=== PATIENT | female | born 1955 | race Caucasian/White ===

== ENCOUNTER → 2018-04-26 14:02 | Outpatient (CLI) | payer BC, SELFPAY ==
[2018-05-16 13:03] LABS: HPV Reflexed? NOT INDICATED
== END ==
PROVIDERS: Visit Provider Obstetrics & Gynecology
DX: Z12.4 Encounter for screening for malignant neoplasm of cervix (principal)
CPT/HCPCS: 88175; G0145

== ENCOUNTER → 2019-08-27 12:26 | Outpatient (CLI) | payer MEDICARE, OTHER, SELFPAY ==
--- NOTE | 2019-08-27 12:35 | BI_ITS ---
MAMMOGRAPHY - BILATERAL SCREENING - CAD and FAITH IMAGES REASON FOR EXAM: Female, 64 years old. Routine annual screening examination. PERTINENT HISTORY: Non-contributory. TECHNIQUE: Digital examination. Mediolateral oblique (MLO) and craniocaudad (CC) views of both breasts were obtained. CAD: CAD was performed on this study. Faith images were reviewed. COMPARISON: Mammogram studies dated 07/05/2018 FINDINGS: Breast Composition: There are scattered areas of fibroglandular density. There are no suspicious masses, suspicious cluster of microcalcifications, architectural distortion or secondary sign of malignancy identified in either breast. Focal fibroglandular densities are noted bilaterally. A mole marker is placed over the mole on the right breast. A benign-appearing round macrocalcification is seen in the right breast. Benign round microcalcifications are seen in the superior outer aspect of the left breast. Faint vascular calcifications are seen in the left breast. No other significant abnormalities are identified. CAD and Faith were reviewed. BI/SCREEN MAMM (CAD) W/FAITH BILAT IMPRESSION: Stable bilateral screening mammogram. ASSESSMENT CATEGORY: BIRADS Category 2: Benign. A letter regarding these results will be sent to the patient by the facility within 30 days. FOLLOW UP RECOMMENDATION: Yearly follow up mammogram recommended. (A) Approximately 10% of breast cancers are not detected by mammography. A normal mammogram should not delay biopsy of a clinically suspicious abnormality. [id number] Electronically Signed: Caity Baltazar DO at 14:46 EST Tel , Service support ,
== END ==
PROVIDERS: PCP Internal Medicine; Referring Provider Internal Medicine; Visit Provider Internal Medicine
DX: Z12.31 Encounter for screening mammogram for malignant neoplasm of breast (principal)
CPT/HCPCS: 77063; 77067

== ENCOUNTER → 2020-12-29 12:30 | Outpatient (CLI) | payer MEDICARE, OTHER, SELFPAY ==
[2020-01-14 08:42] VITALS: BMI 30.5
--- NOTE | 2020-12-29 12:32 | BI_ITS ---
MAMMOGRAPHY - BILATERAL SCREENING REASON FOR EXAM: Female, 65 years old. Routine annual screening examination. PERTINENT HISTORY: Sister with breast cancer. TECHNIQUE: Digital bilateral breast faith (3D mammographic acquisition) in the CC and MLO projections. 2-D mediolateral oblique (MLO) and craniocaudad (CC) views of both breasts were obtained. CAD: Full Field Digital Mammography with Computer Added Detection was performed. COMPARISON: Comparison is made with prior study dated 08/27/2019. FINDINGS: Breast Composition: There are scattered areas of fibroglandular density. There are no dominant masses or suspicious calcifications. No other significant abnormalities are identified. There has been no significant change since the prior study. BI/SCRN MAMM (CAD)W/FAITH BILAT IMPRESSION: Stable bilateral screening mammogram. Yearly follow-up mammogram recommended. (A) ASSESSMENT CATEGORY: BIRADS Category 1: Negative. A letter regarding these results will be sent to the patient by the facility within 30 days. Approximately 10% of breast cancers are not detected by mammography. A normal mammogram should not delay biopsy of a clinically suspicious abnormality. [id number] Electronically Signed: Harman Johns MD at 14:00 EDT , Service support ,
== END ==
PROVIDERS: PCP Internal Medicine; Referring Provider Internal Medicine; Visit Provider Internal Medicine
DX: Z12.31 Encounter for screening mammogram for malignant neoplasm of breast (principal)
CPT/HCPCS: 77063; 77067

== ENCOUNTER → 2022-01-12 | Outpatient (CLI) | payer MEDICARE, OTHER, SELFPAY ==
--- NOTE | 2022-01-12 07:58 | BI_ITS ---
MAMMOGRAPHY - BILATERAL SCREENING REASON FOR EXAM: Female, 66 years old. Routine annual screening examination. PERTINENT HISTORY: Sister with breast cancer. TECHNIQUE: Digital bilateral breast faith (3D mammographic acquisition) in the CC and MLO projections. 2-D mediolateral oblique (MLO) and craniocaudad (CC) views of both breasts were obtained. CAD: Full Field Digital Mammography with Computer Added Detection was performed. COMPARISON: Comparison is made with prior study dated 12/29/2020 and 08/27/2019. FINDINGS: Breast Composition: There are scattered areas of fibroglandular density. There are no dominant masses or suspicious calcifications. No other significant abnormalities are identified. There has been no significant change since the prior study. BI/SCRN MAMM (CAD)W/FAITH BILAT IMPRESSION: Stable bilateral screening mammogram. Yearly follow-up mammogram recommended. (A) ASSESSMENT CATEGORY: BIRADS Category 1: Negative. A letter regarding these results will be sent to the patient by the facility within 30 days. Approximately 10% of breast cancers are not detected by mammography. A normal mammogram should not delay biopsy of a clinically suspicious abnormality. [id number] Electronically Signed: Harman Johns MD at 9:01 EDT ,
== END | disposition home or self-care (01) ==
LOC: OPBI 07:55
PROVIDERS: PCP Family Medicine; Visit Provider Internal Medicine
DX: Z12.31 Encounter for screening mammogram for malignant neoplasm of breast (principal)
CPT/HCPCS: 77063; 77067

== ENCOUNTER → 2023-01-20 | Outpatient (CLI) | payer MEDICARE, OTHER, SELFPAY ==
--- NOTE | 2023-01-20 11:56 | BI_ITS ---
MAMMOGRAPHY - BILATERAL SCREENING 3-D TOMOSYNTHESIS REASON FOR EXAM: Female, 67 years old. Routine screening PERTINENT HISTORY: Sister with breast cancer.. TECHNIQUE: 2-D mammograms and 3-D Tomosynthesis of the breast (s) were performed. CAD was performed. COMPARISON: 12/29/2020 FINDINGS: The breast composition is composed of scattered fibroglandular density. Scattered benign calcifications are seen. No dense spiculated masses or suspicious microcalcifications are identified. No architectural distortion is identified. There is no skin thickening or retraction. There has been no significant change since the prior study. BI/SCRN MAMM (CAD)W/FAIHT BILAT IMPRESSION: No mammographic signs of malignancy. Routine yearly mammograms recommended. ASSESSMENT CATEGORY: BIRADS Category 1: Negative. A letter regarding these results will be sent to the patient by the facility within 30 days. FOLLOW UP RECOMMENDATION: Yearly follow up mammogram recommended. (A) Approximately 10% of breast cancers are not detected by mammography. A normal mammogram should not delay biopsy of a clinically suspicious abnormality. Electronically Signed: Anjum Shahid MD at 12:52 EDT ,
== END | disposition home or self-care (01) ==
LOC: OPBI 11:53
PROVIDERS: PCP Family Medicine; Referring Provider Family Medicine; Visit Provider Family Medicine
DX: Z12.31 Encounter for screening mammogram for malignant neoplasm of breast (principal)
CPT/HCPCS: 77063; 77067

== ENCOUNTER → 2023-06-01 | Outpatient (CLI) | payer MEDICARE, OTHER, SELFPAY ==
[2023-06-01 12:12] LABS: Absolute Lymphocyte Count 1.14 X10^3/uL (0.83-4.51); Absolute Neutrophil Count 2.5 X10^3/uL (2.0-7.7); Basophil# 0.03 X10^3/uL; Basophil% 0.7 % (0-1); Eosinophil# 0.25 X10^3/uL; Eosinophils% 5.8 % (0-5); Hematocrit 38.8 % (37-47); Hemoglobin 13.2 g/dL (12.0-15.0); Lymphocyte # 1.14 X10^3/ul (0.83-4.51); Lymphocyte % 26.4 % (19-41); Mean Corpuscular Hgb 31.4 pg (27.0-32.0); Mean Corpuscular Volume 92.4 fL (81-99); Mean Platelet Vol. 9.9 fl (6.2-12.0); Monocyte# 0.35 X10^3/uL; Monocyte% 8.1 % (0-10); NRBC Flagged by Analyzer 0 % (0-5); Neutrophil # 2.54 X10^3/uL (2.7-7.7); Neutrophil % 58.8 % (47-70); Platelet Count 247 K/mm3 (150-450); RBC Distribution Width SD 43.7 fl (35.1-43.9); White Blood Count 4.3 K/mm3 (4.4-11.0)
[2023-06-01 12:37] LABS: ALB/GLOB Ratio 1.1 RATIO (0.9-2.4); AST(SGOT) 29 U/L (15-37); Alanine Aminotransfer ALT/SGPT 28 U/L (13-56); Albumin, Serum 3.7 g/dL (3.2-5.0); Alkaline Phosphatase 68 U/L (45-117); Anion Gap 4 (5-15); BUN 21 mg/dL (7-18); BUN/Creat Ratio 19.8 RATIO (10-20); Calcium,Total 9.4 mg/dL (8.5-10.1); Chloride 108 mmol/L (98-107); Cholesterol 165 mg/dL (200); Creatinine, Serum 1.06 mg/dL (0.55-1.02); EST Glomerular Filtration Rate 55 mL/min (>60); Est Glom Filt Rate - Afr Amer 66 mL/min (>60); Globulin 3.4 g/dL (2.2-4.2); Glucose 89 mg/dL (74-106); High Density Lipoprotein 87 mg/dL; Potassium 3.7 mmol/L (3.5-5.1); Protein, Total 7.1 g/dL (6.4-8.2); Sodium Level 141 mmol/L (136-145); Thyroid Stim Hormone (TSH) 1.01 uIU/mL (0.358-3.74); Triglycerides 57 mg/dL; Very Low Density Lipoprotein 11 mg/dL (5-40)
== END | disposition home or self-care (01) ==
LOC: MFPLAB 09:34
PROVIDERS: PCP Family Medicine; Visit Provider Family Medicine
DX: I10 Essential (primary) hypertension (principal)
CPT/HCPCS: 36415; 80053; 80061; 84443; 85025

== ENCOUNTER → 2024-01-22 | Outpatient (CLI) | payer MEDICARE, OTHER, SELFPAY ==
--- NOTE | 2024-01-22 07:53 | BI_ITS ---
MAMMOGRAPHY - BILATERAL SCREENING REASON FOR EXAM: Female, 68 years old. Routine annual screening examination. PERTINENT HISTORY: Sister with breast cancer. TECHNIQUE: Digital bilateral breast faith (3D mammographic acquisition) in the CC and MLO projections. 2-D mediolateral oblique (MLO) and craniocaudad (CC) views of both breasts were obtained. CAD: Full Field Digital Mammography with Computer Added Detection was performed. COMPARISON: Comparison is made with prior study dated January 20, 2023 and January 12, 2022. FINDINGS: Breast Composition: There are scattered areas of fibroglandular density. There are no dominant masses or suspicious calcifications. No other significant abnormalities are identified. There has been no significant change since the prior study. BI/SCRN MAMM (CAD)W/FAITH BILAT IMPRESSION: Stable bilateral screening mammogram. Yearly follow-up mammogram recommended. (A) ASSESSMENT CATEGORY: BIRADS Category 1: Negative. A letter regarding these results will be sent to the patient by the facility within 30 days. Approximately 10% of breast cancers are not detected by mammography. A normal mammogram should not delay biopsy of a clinically suspicious abnormality. [id number] Electronically Signed: Harman Johns MD at 8:50 EDT ,
== END | disposition home or self-care (01) ==
LOC: OPBI 07:52
PROVIDERS: PCP Family Medicine; Referring Provider Family Medicine; Visit Provider Family Medicine
DX: Z12.31 Encounter for screening mammogram for malignant neoplasm of breast (principal); Z80.3 Family history of malignant neoplasm of breast
CPT/HCPCS: 77063; 77067

== ENCOUNTER 2024-05-27 08:30 | Outpatient (CLI) | payer MEDICARE, OTHER, SELFPAY ==
[2024-05-27 10:31] LABS: Absolute Lymphocyte Count 1.45 X10^3/uL (0.83-4.51); Absolute Neutrophil Count 3.8 X10^3/uL (2.0-7.7); Basophil# 0.04 X10^3/uL; Basophil% 0.7 % (0-1); Eosinophil# 0.25 X10^3/uL; Eosinophils% 4.2 % (0-5); Hematocrit 39.7 % (37-47); Hemoglobin 13.1 g/dL (12.0-15.0); Lymphocyte # 1.45 X10^3/ul (0.83-4.51); Lymphocyte % 24.3 % (19-41); Mean Corpuscular Hgb 30.4 pg (27.0-32.0); Mean Corpuscular Volume 92.1 fL (81-99); Mean Platelet Vol. 9.5 fl (6.2-12.0); Monocyte% 6.7 % (0-10); NRBC Flagged by Analyzer 0 % (0-5); Neutrophil # 3.82 X10^3/uL (2.7-7.7); Neutrophil % 63.9 % (47-70); Platelet Count 315 K/mm3 (150-450); RBC Distribution Width CV 12.4 % (11.6-14.6); RBC Distribution Width SD 42.1 fl (35.1-43.9); Red Blood Count 4.31 M/mm3 (4.2-5.4)
[2024-05-27 10:51] LABS: Vitamin D,25 Hydroxy 41.8 ng/mL
[2024-05-27 11:55] LABS: ALB/GLOB Ratio 1.3 RATIO (0.9-2.4); AST(SGOT) 29 U/L (15-37); Alanine Aminotransfer ALT/SGPT 34 U/L (13-56); Alkaline Phosphatase 68 U/L (45-117); Anion Gap 7 (5-15); BUN 19 mg/dL (7-18); BUN/Creat Ratio 15.7 RATIO (10-20); Calcium,Total 9.6 mg/dL (8.5-10.1); Chloride 108 mmol/L (98-107); Cholesterol 174 mg/dL (200); Creatinine, Serum 1.21 mg/dL (0.55-1.02); EST Glomerular Filtration Rate 47 mL/min (>60); Est Glom Filt Rate - Afr Amer 57 mL/min (>60); Glucose 93 mg/dL (74-106); High Density Lipoprotein 85 mg/dL; Potassium 3.8 mmol/L (3.5-5.1); Sodium Level 140 mmol/L (136-145); Triglycerides 54 mg/dL; Very Low Density Lipoprotein 11 mg/dL (5-40)
== END 2024-05-27 23:59 | disposition home or self-care (01) ==
LOC: MFPLAB 08:31
PROVIDERS: PCP Family Medicine; Visit Provider Family Medicine
DX: M54.32 Sciatica, left side (principal); I10 Essential (primary) hypertension
CPT/HCPCS: 36415; 80053; 80061; 82306; 84443; 85025

== ENCOUNTER → 2025-01-28 | Outpatient (CLI) | payer MEDICARE, OTHER, SELFPAY ==
--- NOTE | 2025-01-28 07:17 | BI_ITS ---
EXAM: SCRN MAMM (CAD)W/FAITH BILAT DATE: 01/28/2025 CLINICAL HISTORY: F, Age 69 y/o , POST MENAPAUSAL SCREENING Sister with breast cancer. TECHNIQUE: SCRN MAMM (CAD)W/FAITH BILAT COMPARISON: Prior exam(s) dated January 22, 2024.. FINDINGS: TISSUE DENSITY: There are scattered areas of fibroglandular density. Bilateral Breast Mammographic Findings: No significant masses, calcifications or other abnormalities are identified. No suspicious masses, areas of developing architectural distortion, or suspicious calcifications. There has been no significant interval change. BI/SCRN MAMM (CAD)W/FAITH BILAT IMPRESSION: Stable examination. OVERALL FINAL ASSESSMENT BI-RADS 1: NEGATIVE. RECOMMENDATION: Routine annual follow-up in 1 Year A letter with findings and recommendations will be mailed to the patient. Reading Location: [id number]
--- NOTE | 2025-01-28 07:22 | BD_ITS ---
PROCEDURE: DEXA BONE DENSITY STUDY 01/28/2025 REASON FOR EXAM: F, age 69 y/o . Postmenopausal. TECHNIQUE: DEXA BONE DENSITY STUDY COMPARISON: None FINDINGS: BMD and T-SCORES Lumbar spine: 0.693 g/cm2, T-score -3.0 Levels: L1 through L4 Left femoral neck: 0.523 g/cm2, T-score -2.9 Femoral neck comparison data not recommended for monitoring change. Left total hip: 0.708 g/cm2, T-score -1.9 Right femoral neck: 0.513 g/cm2, T-score -3.0 Femoral neck comparison data not recommended for monitoring change. Right total hip: 0.719 g/cm2, T-score -1.8 The World Health Organization has defined the following categories based on bone density: Normal bone density: T-score equal to or greater than -1.0 Osteopenia: T-score between -1.0 and -2.5 Osteoporosis: T-score equal to or less than -2.5 The patient does meet the pharmacological treatment recommendations for prevention of osteoporosis. BD/Dexa Bone Density Study IMPRESSION: OSTEOPOROSIS. Recommend follow-up as clinically warranted. Reading Location: [facility]
--- OUTSIDE RECORDS SUMMARY | 2025-01-28 07:32 | XMS RPT_ITS | CCD ---
Author Organization [facility] Inform ion Partnership [employer] [facility] Care Team Providers Care Mine Motor Operator Name Role Phone LAKHWINDER ARREOLAVIN Unavailable Unavailable ANIBAL GRACE Unavailable Unavailable Anibal Grace Unavailable Unavailable Anibal Grace Unavailable Unavailable Shanice Ambrose Admitting Unavailable Shanice Ambrose Attending Unavailable Anibal Grace Primary Care Unavailable Oberhauser, Mel L Admitting Unavailable Oberhauser, Mel L Attending Unavailable Oberhauser, Mel L Primary Care Unavailable Oberhauser, Mel Unavailable Unavailable Oberhauser, Mel L Unavailable Unavailable Anibal Grace Unavailable Unavailable Unavailable Unavailable Unavailable Oberhauser, Mel Unavailable Unavailable Oberhauser, Mel L Unavailable Unavailable Oberhauser, Mel L Unavailable Unavailable Unavailable Unavailable Unavailable Oberhauser, Mel L Unavailable [phone] Ba Yousif Unavailable Unavailable Marlen, Eric Attending Unavailable Marlen, Davidon Primary Care Unavailable MarlenEric Attending Unavailable Marlen, Chalon Referring Unavailable Marlen, Chalon Primary Care Unavailable Allergies Allergy Classification Reported Allergen(s) Allergy Type Date of Onset Reaction(s) Facility Opioid Agonists (3 sources) Codeine; Translations: [codeine] Drug Allergy [facility] Work Phone: (10 sources) codeine; Translations: [CODEINE] Drug Allergy 5 Unknown [facility] Repository (2 sources) lisinopril; Translations: [LISINOPRIL] Drug Allergy 6 Other (See Comments) [facility] Repository Medications Current Medications Medication Drug Class(es) Dates Sig (Normalized) Sig (Original) aspirin 81 mg delayed release oral tablet (14 sources) Nonsteroidal Anti-inflammatory Drug Start: 01-14-2020 take 1 tablet by mouth once daily Aspirin (Adult Aspirin Regimen) 81 mg tablet,delayed release (DR/EC) Active 81 MG PO DAILY January 13, 2020 11:00pm azithromycin 250 mg oral tablet (2 sources) Macrolide Antimicrobial Start: 01-14-2020 Azithromycin Active 0 PO .COMPLEX 6 January 13, 2020 11:00pm take 500 mg today (day 1), then 250 mg for 4 days (days 2-5) PO doxycycline hyclate 100 mg oral tablet (1 source) Tetracycline-class Drug Start: 11-15-2021 End: 11-24-2021 take 1 tablet by mouth twice daily doxycycline hyclate 100 mg oral tablet ; 1 tab(s) orally 2 times a day Quantity: 20 Refills: 0 Ordered: 15-Nov-2021 Ba Yousif Start: 15-Nov-2021 End: 24-Nov-2021 Generic Substitution Allowed Comments: Avoid prolonged or excessive exposure to direct and/or artificial sunlight while taking this medication.Do not take this drug if you are .Finish all this medication unless otherwise directed by prescriber.Medicat ion should be taken with plenty of water. Comment on above: Avoid prolonged or e xcessive exposure to direct and/or artificial sunlight while taking this medication.Do not take this drug if you are .Finish all this medication unless otherwise directed by prescriber.Medication should be taken with plenty of water. fexofenadine hydrochloride 60 mg oral tablet (13 sources) Histamine-1 Receptor Antagonist Start: 01-14-2020 take 1 tablet by mouth twice daily Fexofenadine (Carol Allergy) 60 mg tablet Active 60 MG PO TWICE A DAY January 13, 2020 11:00pm Carol TABS PATY E 1 TABLET DAILY. Quantity: 0 Refills: 0 Ordered: 17-Sep-2019 DO Active Carol TABS PATY E 1 TABLET DAILY. Refills: 0 DO Active Carol TABS PATY E 1 TABLET DAILY. Refills: 0 Active hydroCHLOROthiazide 12.5 mg oral capsule (19 sources) Thiazide Diuretic Start: 06-21-2019 Hydrochlorothiazide Active PO January 13, 2020 11:00pm Start: 01-10-2018 End: 01-10-2018 take 1 tablet by mouth once daily hydroCHLOROthiazide (HYDRODIURIL) 12.5 MG tablet Take 1 (one) tablet (12.5 mg total) by mouth daily. 90 tablet 3 01/10/2018 Active losartan potassium 100 mg oral tablet (19 sources) Angiotensin 2 Receptor Jeffry Start: 06-21-2019 Losartan Active PO January 13, 2020 11:00pm Start: 01-10-2018 End: 01-10-2018 take 1 tablet by mouth once daily losartan (COZAAR) 100 MG tablet Take 1 (one) tablet (100 mg total) by mouth daily. 90 tablet 3 01/10/2018 Active lovastatin 20 mg oral tablet (17 sources) HMG-CoA Reductase Inhibitor Start: 01-14-2020 Lovastatin Active MG PO January 13, 2020 11:00pm Start: 07-26-2017 take 1 tablet by jose th once daily Lovastatin 20 MG Oral Tablet Take 1 tablet daily as directed Quantity: 90 Refills: 3 Ordered: 06-Dec-2021 Mel Montalvo DO Start : 22-Jul-2019 Active Completed/Discontinued Medications Medication Drug Class(es) Dates Sig (Normalized) Sig (Original) lisinopril 20 mg oral tablet (9 sources) Angiotensin Converting Enzyme Inhibitor End: 11-30-2021 take 1 tablet by mouth once daily Lisinopril 20 MG Oral Tablet TAKE 1 TABLET DAILY DIRECTED. Quantity: 0 Refills: 0 Ordered: 30-Nov-2021 DO End : 30-Nov-2021 Complete mupirocin 0.02 mg/mg topical ointment (3 sources) RNA Synthetase Inhibitor Antibacterial Start: 11-20-2021 Mupirocin 2 % External Ointment APPLY SPARINGLY TO AFFECTED AREA(S) TWICE DAILY Quantity: 1 Refills: 0 Ordered: 20-Nov-2021 Vinay Wiggins PA-C Start : 20-Nov-2021 Active naproxen sodium 220 mg oral tablet (11 sources) Nonsteroidal Anti-inflammatory Drug take 1 tablet by mouth three times daily as needed Aleve 220 MG Oral Tablet TAKE 1 TABLET 3 TIMES DAILY NEEDED. Quantity: 0 Refills: 0 Ordered: 17-Sep-2019 DO Active omeprazole 40 mg delayed release oral capsule (1 source) Proton Pump Inhibitor End: 01-10-2018 take 1 capsule by mouth once daily omeprazole (PRILOSEC) 40 MG capsule Take 40 mg by mouth daily. 01/10/2018 Discontinued 24 hr oxybutynin chloride 5 mg extended release oral tablet (5 sources) Cholinergic Muscarinic Antagonist Start: 01-28-2020 take 1 tablet by mouth once daily Oxybutynin Chloride ER 5 MG Oral Tablet Extended Release 24 Hour Take one tablet daily Quantity: 90 Refills: 1 Ordered: 28-Jan-2020 Mel Montalvo DO Start : 28-Jan-2020 Active progesterone 100 mg oral capsule (8 sources) Progesterone take 1 capsule by mouth once daily Progesterone 100 MG Oral Capsule TAKE 1 CAPSULE ONCE DAILY Quantity: 0 Refills: 0 Ordered: 17-Sep-2019 DO Active tolterodine tartrate 2 mg oral tablet (15 sources) Cholinergic Muscarinic Antagonist Start: 10-07-2021 End: 10-26-2021 take 1 tablet by mouth twice daily Tolterodine Tartrate 2 MG Oral Tablet Take 1 tablet twice daily Quantity: 60 Refills: 5 Ordered: 07-Oct-2021 Mel Montalvo DO Start : 07-Oct-2021 End : 26-Oct-2021 Complete Start: 01-27-2020 take 1 tablet by jose th once daily Tolterodine Tartrate ER 4 MG Oral Capsule Extended Release 24 Hour TAKE 1 TABLET BY MOUTH DAILY Quantity: 90 Refills: 3 Ordered: 26-Oct-2021 Mel Montalvo DO Start : 27-Jan-2020 Active Start: 01-14-2020 take 1 tablet by jose th once daily Tolterodine (Detrol) 1 mg tablet Active 1 MG PO DAILY January 13, 2020 11:00pm Problems Active Problems Problem Classification Problem Date Documented Date Episodic/Chronic Acute bronchitis (2 sources) Acute bronchitis; Translations: [Acute bronchitis, unspecified] 01-14-2020 Episodic Cardiac and circulatory congenital anomalies (4 sources) Atrial septal defect; Translations: [Patent foramen ovale] Onset: 02-18-2015 02-18-2015 Chronic Disorders of lipid metabolism (17 sources) Hyperlipidemia, unspecified; Translations: [Dyslipidemia] Onset: 02-18-2015 02-18-2015 Chronic Essential hypertension (18 sources) Essential (primary) hypertension; Translations: [Hypertensive disorder] Onset: 02-18-2015 02-18-2015 Chronic Other diseases of bladder and urethra (10 sources) Overactive bladder; Translations: [Overactive bladder] Chronic Other screening for suspected conditions (not mental disorders or infectious disease) (20 sources) Patient encounter status; Translations: [Special screening for osteoporosis] Onset: 01-24-2025 Episodic Poisoning by nonmedicinal substances (3 sources) Spider bite wound; Translations: [Toxic effect of venom] Episodic Residual codes; unclassified (11 sources) Postmenopausal state; Translations: [Asymptomatic postmenopausal status (age-related) (natural)] Episodic Residual codes; unclassified (20 sources) Past history of procedure; Translations: [Other specified personal history presenting hazards to health] Episodic Comment on above: 07/2018; 04/2018; Residual codes; unclassified (1 source) Asymptomatic menopausal state; Translations: [Asymptomatic menopausal state] Onset: 01-24-2025 Episodic Unclassified (2 sources) LESION ON BACK 11-15-2021 Comment on above: LESION ON BACK Past or Other Problems Problem Classification Problem Date Documented Da te Episodic/Chronic Spondylosis; intervertebral disc disorders; other back problems (1 source) Sciatica, left side; Translations: [Sciatica, left side] Onset: 07-26-2024 Episodic Unclassified (6 sources) Patient encounter status; Translations: [Encounter for screening mammogram for breast cancer] NEGATED: Highlighted row has not occurred!Residual codes; unclassified (4 sources) Disease Episodic Results Test Name Value Interpretation Reference Range Facility CBC W/Diff, Automatedon 05-04 Absolute Lymph 1.45 X10 3/uL Normal 0.83-4.51 [facility] Comment on above: Order Comment: Order Date: 05/27/24 Order Info: [id number] - CBCD Performed By: #### L 500.4050, L500.4100, L501.9520, L506.1000, L100.0100 #### [facility] [address] [place], [place], [id number] Absolute Neut 3.8 X10 3/uL Normal 2.0-7.7 [facility] Comment on above: Order Comment: Order Date: 05/27/24 Order Info: [id number] - CBCD Performed By: #### L 500.4050, L500.4100, L501.9520, L506.1000, L100.0100 #### [facility] [address] [place], [address] Basophils/100 WBC (Bld) 0.7 % Normal 0-1 [facility] Comment on above: Order Comment: Order Date: 05/27/24 Order Info: 0184-1 - CBCD Performed By: #### L 500.4050, L500.4100, L501.9520, L506.1000, L100.0100 #### [facility] [address] [place], [address] Eosinophils/100 WBC (Bld) 4.2 % Normal 0-5 [facility] Comment on above: Order Comment: Order Date: 05/27/24 Order Info: 0184-1 - CBCD Performed By: #### L 500.4050, L500.4100, L501.9520, L506.1000, L100.0100 #### [facility] [address] [place], [address] Erythrocyte distribution width (RBC) [Ratio] 12.4 % Normal 11.6-14.6 [facility] Comment on above: Order Comment: Order Date: 05/27/24 Order Info: 0184-1 - CBCD Performed By: #### L 500.4050, L500.4100, L501.9520, L506.1000, L100.0100 #### [facility] [address] [place], [address] Hematocrit (Bld) [Volume fraction] 39.7 % Normal 37-47 [facility] Comment on above: Order Comment: Order Date: 05/27/24 Order Info: 0184-1 - CBCD Performed By: #### L 500.4050, L500.4100, L501.9520, L506.1000, L100.0100 #### [facility] [address] [place], [address] Hemoglobin (Bld) [Mass/Vol] 13.1 g/dL Normal 12.0-15.0 [facility] Comment on above: Order Comment: Order Date: 05/27/24 Order Info: 0184-1 - CBCD Performed By: #### L 500.4050, L500.4100, L501.9520, L506.1000, L100.0100 #### [facility] [address] [place], [address] IG% 0.200 Normal 0.0-0.9 [facility] Comment on above: Order Comment: Order Date: 05/27/24 Order Info: 0184- - CBCD Result Comment: IG% - Immature Granulocytes (promyelocytes, myelocytes and metamyelocytes) > 1% indicates that a LEFT SHIFT is Present. Performed By: #### L 500.4050, L500.4100, L501.9520, L506.1000, L100.0100 #### [facility] [address] [place], [address] Lymphocytes/100 WBC (Bld) 24.3 % Normal 19-41 [facility] Comment on above: Order Comment: Order Date: 05/27/24 Order Info: 0184- - CBCD Performed By: #### L 500.4050, L500.4100, L501.9520, L506.1000, L100.0100 #### [facility] [address] [place], [address] MCH (RBC) [Entitic mass] 30.4 pg Normal 27.0-32.0 [facility] Comment on above: Order Comment: Order Date: 05/27/24 Order Info: 0184-1 - CBCD Performed By: #### L 500.4050, L500.4100, L501.9520, L506.1000, L100.0100 #### [facility] [address] [place], [address] MCHC (RBC) [Mass/Vol] 33.0 g/dL Normal 32-36 [facility] Comment on above: Order Comment: Order Date: 05/27/24 Order Info: 0184-1 - CBCD Performed By: #### L 500.4050, L500.4100, L501.9520, L506.1000, L100.0100 #### [facility] [address] [place], [address] MCV (RBC) [Entitic vol] 92.1 fL Normal 81-99 [facility] Comment on above: Order Comment: Order Date: 05/27/24 Order Info: 0184-1 - CBCD Performed By: #### L 500.4050, L500.4100, L501.9520, L506.1000, L100.0100 #### [facility] [address] [place], [address] Monocytes/100 WBC (Bld) 6.7 % Normal 0-10 [facility] Comment on above: Order Comment: Order Date: 05/27/24 Order Info: 018- - CBCD Performed By: #### L 500.4050, L500.4100, L501.9520, L506.1000, L100.0100 #### [facility] [address] [place], [address] Neutrophils/100 WBC (Bld) 63.9 % Normal 47-70 [facility] Comment on above: Order Comment: Order Date: 05/27/24 Order Info: 018- - CBCD Performed By: #### L 500.4050, L500.4100, L501.9520, L506.1000, L100.0100 #### [facility] [address] [place], [address] Nucleated RBC (Bld) [#/Vol] 0 10*3/uL Normal 0-5 [facility] Comment on above: Order Comment: Order Date: 05/27/24 Order Info: 0184-1 - CBCD Performed By: #### L 500.4050, L500.4100, L501.9520, L506.1000, L100.0100 #### [facility] [address] [place], [address] Platelet mean volume (Bld) [Entitic vol] 9.5 fL Normal 6.2-12.0 [facility] Comment on above: Order Comment: Order Date: 05/27/24 Order Info: 0184-1 - CBCD Performed By: #### L 500.4050, L500.4100, L501.9520, L506.1000, L100.0100 #### [facility] [address] [place], [address] Platelets (Bld) [#/Vol] 315 10*3/uL Normal 150-450 [facility] Comment on above: Order Comment: Order Date: 05/27/24 Order Info: 0184- - CBCD Performed By: #### L 500.4050, L500.4100, L501.9520, L506.1000, L100.0100 #### [facility] [address] [place], [address] RBC (Bld) [#/Vol] 4.31 10*6/uL Normal 4.2-5.4 [facility] Comment on above: Order Comment: Order Date: 05/27/24 Order Info: 0184- - CBCD Performed By: #### L 500.4050, L500.4100, L501.9520, L506.1000, L100.0100 #### [facility] [address] [place], [address] RDW SD 42.1 fl Normal 35.1-43.9 [facility] Comment on above: Order Comment: Order Date: 05/27/24 Order Info: 0184-1 - CBCD Performed By: #### L 500.4050, L500.4100, L501.9520, L506.1000, L100.0100 #### [facility] [address] [place], [address] WBC (Bld) [#/Vol] 6.0 10*3/uL Normal 4.4-11.0 [facility] Comment on above: Order Comment: Order Date: 05/27/24 Order Info: 0184-1 - CBCD Performed By: #### L 500.4050, L500.4100, L501.9520, L506.1000, L100.0100 #### [facility] [address] [place], [address] Comprehensive Metabolic Prof ilon 05-27-2024 Albumin [Mass/Vol] 4.0 g/dL Normal 3.2-5.0 [facility] Comment on above: Order Comment: Order Date: 05/27/24 Order Info: [id number] - CMP Order Info: [id number] - LIPID Order Info: [id number] - TSH Performed By: #### L 500.4050, L500.4100, L501.9520, L506.1000, L100.0100 #### [facility] [address] [place], [address] Albumin/Globulin [Mass ratio] 1.3 {ratio} Normal 0.9-2.4 [facility] Comment on above: Order Comment: Order Date: 05/27/24 Order Info: [id number] - CMP Order Info: [id number] - LIPID Order Info: [id number] - TSH Performed By: #### L 500.4050, L500.4100, L501.9520, L506.1000, L100.0100 #### [facility] [address] [place], [address] ALK P 68 U/L Normal 45-117 [facility] Comment on above: Order Comment: Order Date: 05/27/24 Order Info: [id number] - CMP Order Info: [id number] - LIPID Order Info: 301-3 - TSH Performed By: #### L 500.4050, L500.4100, L501.9520, L506.1000, L100.0100 #### [facility] [address] [place], [address] ALT [Catalytic activity/Vol] 34 U/L Normal 13-56 [facility] Comment on above: Order Comment: Order Date: 05/27/24 Order Info: 785- - CMP Order Info: [id number] - LIPID Order Info: [id number] - TSH Performed By: #### L 500.4050, L500.4100, L501.9520, L506.1000, L100.0100 #### [facility] [address] [place], [address] AST [Catalytic activity/Vol] 29 U/L Normal 15-37 [facility] Comment on above: Order Comment: Order Date: 05/27/24 Order Info: [id number] - CMP Order Info: - LIPID Order Info: [id number] - TSH Performed By: #### L 500.4050, L500.4100, L501.9520, L506.1000, L100.0100 #### [facility] [address] [place], [address] Bilirubin [Mass/Vol] 0.80 mg/dL Normal 0.20-1.00 [facility] Comment on above: Order Comment: Order Date: 05/27/24 Order Info: [id number] - CMP Order Info: - LIPID Order Info: [id number] - TSH Result Comment: For patients on eltrombopag therapy, use of Dimension Mcallister TBIL is not recommended. Performed By: #### L 500.4050, L500.4100, L501.9520, L506.1000, L100.0100 #### [facility] [address] [place], [address] BUN/CRE 15.7 RATIO Normal 10-20 [facility] Comment on above: Order Comment: Order Date: 05/27/24 Order Info: 1 - CMP Order Info: [id number] - LIPID Order Info: [id number] - TSH Performed By: #### L 500.4050, L500.4100, L501.9520, L506.1000, L100.0100 #### [facility] [address] [place], [address] CA,Total 9.6 mg/dL Normal 8.5-10.1 [facility] Comment on above: Order Comment: Order Date: 05/27/24 Order Info: 785- - CMP Order Info: - LIPID Order Info: 3 - TSH Performed By: #### L 500.4050, L500.4100, L501.9520, L506.1000, L100.0100 #### [facility] [address] [place], [address] Chloride [Moles/Vol] 108 mmol/L High 98-107 [facility] Comment on above: Order Comment: Order Date: 05/27/24 Order Info: [id number] - CMP Order Info: - LIPID Order Info: [id number] - TSH Performed By: #### L 500.4050, L500.4100, L501.9520, L506.1000, L100.0100 #### [facility] [address] [place], [address] CO2 [Moles/Vol] 26.0 mmol/L Normal 21.0-32.0 [facility] Comment on above: Order Comment: Order Date: 05/27/24 Order Info: [id number] - CMP Order Info: [id number] - LIPID Order Info: [id number] - TSH Performed By: #### L 500.4050, L500.4100, L501.9520, L506.1000, L100.0100 #### [facility] [address] [place], [address] Creatinine [Mass/Vol] 1.21 mg/dL High 0.55-1.02 [facility] Comment on above: Order Comment: Order Date: 05/27/24 Order Info: 785- - CMP Order Info: [id number] - LIPID Order Info: [id number] - TSH Result Comment: The validity of the calculated GFR GFRAA in patients over 70 years has not been determined. Clinical correlation is essential. Performed By: #### L 500.4050, L500.4100, L501.9520, L506.1000, L100.0100 #### [facility] [address] [place], [address] EST GFR - AA 57 mL/min Low >60 [facility] Comment on above: Order Comment: Order Date: 05/27/24 Order Info: 07-1 - CMP Order Info: [id number] - LIPID Order Info: 3 - TSH Result Comment: Afri can [place] GFR Calc Performed By: #### L 500.4050, L500.4100, L501.9520, L506.1000, L100.0100 #### [facility] [address] [place], [address] GAP 7 Normal 5-15 [facility] Comment on above: Order Comment: Order Date: 05/27/24 Order Info: 0786 - CMP Order Info: [id number] - LIPID Order Info: [id number] - TSH Performed By: #### L 500.4050, L500.4100, L501.9520, L506.1000, L100.0100 #### [facility] [address] [place], [address] GFR/1.73 sq M.predicted among non-blacks MDRD (S/P/Bld) [Vol rate/Area] 47 mL/min/{1.73_m2} Low >60 [facility] Comment on above: Order Comment: Order Date: 05/27/24 Order Info: [id number] - CMP Order Info: [id number] - LIPID Order Info: 6 - TSH Result Comment: Non- GFR Calc Performed By: #### L 500.4050, L500.4100, L501.9520, L506.1000, L100.0100 #### [facility] [address] [place], [address] Globulin (S) [Mass/Vol] 3.0 g/dL Normal 2.2-4.2 [facility] Comment on above: Order Comment: Order Date: 05/27/24 Order Info: 07 - CMP Order Info: - LIPID Order Info: [id number] - TSH Performed By: #### L 500.4050, L500.4100, L501.9520, L506.1000, L100.0100 #### [facility] [address] [place], [address] Glucose [Mass/Vol] 93 mg/dL Normal 74-106 [facility] Comment on above: Order Comment: Order Date: 05/27/24 Order Info: [id number] - CMP Order Info: - LIPID Order Info: [id number] - TSH Performed By: #### L 500.4050, L500.4100, L501.9520, L506.1000, L100.0100 #### [facility] [address] [place], [address] Potassium [Moles/Vol] 3.8 mmol/L Normal 3.5-5.1 [facility] Comment on above: Order Comment: Order Date: 05/27/24 Order Info: 07 - CMP Order Info: - LIPID Order Info: [id number] - TSH Performed By: #### L 500.4050, L500.4100, L501.9520, L506.1000, L100.0100 #### [facility] [address] [place], [address] Sodium [Moles/Vol] 140 mmol/L Normal 136-145 [facility] Comment on above: Order Comment: Order Date: 05/27/24 Order Info: 07 - CMP Order Info: - LIPID Order Info: [id number] - TSH Performed By: #### L 500.4050, L500.4100, L501.9520, L506.1000, L100.0100 #### [facility] [address] [place], [address] T PROT 7.0 g/dL Normal 6.4-8.2 [facility] Comment on above: Order Comment: Order Date: 05/27/24 Order Info: [id number] - CMP Order Info: - LIPID Order Info: [id number] - TSH Performed By: #### L 500.4050, L500.4100, L501.9520, L506.1000, L100.0100 #### [facility] [address] [place], [address] Urea nitrogen [Mass/Vol] 19 mg/dL High 7-18 [facility] Comment on above: Order Comment: Order Date: 05/27/24 Order Info: [id number] - CMP Order Info: - LIPID Order Info: [id number] - TSH Performed By: #### L 500.4050, L500.4100, L501.9520, L506.1000, L100.0100 #### [facility] [address] [place], [address] Lipid Profileon 05-27-2024 Cholesterol [Mass/Vol] 174 mg/dL Normal 200 [facility] Comment on above: Order Comment: Order Date: 05/27/24 Order Info: [id number] - CMP Order Info: - LIPID Order Info: [id number] - TSH Result Comment: <200 mg/dL Desirable 200-240 mg/dL Borderline >240 mg/dL High Risk Performed By: #### L 500.4050, L500.4100, L501.9520, L506.1000, L100.0100 #### [facility] [address] [place], [address] Cholesterol in HDL [Mass/Vol] 85 mg/dL Normal [facility] Comment on above: Order Comment: Order Date: 05/27/24 Order Info: [id number] - CMP Order Info: - LIPID Order Info: [id number] - TSH Result Comment: The drugs N-Acetylcysteine and Metamizole may falsely depress this assay. Reference Range HDL <40 mg/dL Low HDL Cholesterol HDL >or= 60 mg/dL High HDL Cholesterol Performed By: #### L 500.4050, L500.4100, L501.9520, L506.1000, L100.0100 #### [facility] [address] [place], [address] Cholesterol in LDL [Mass/Vol] 78 mg/dL Normal 0-130 [facility] Comment on above: Order Comment: Order Date: 05/27/24 Order Info: 0786- - CMP Order Info: [id number] - LIPID Order Info: [id number] - TSH Performed By: #### L 500.4050, L500.4100, L501.9520, L506.1000, L100.0100 #### [facility] [address] [place], [address] Cholesterol in VLDL [Mass/Vol] 11 mg/dL Normal 5-40 [facility] Comment on above: Order Comment: Order Date: 05/27/24 Order Info: 0786- - CMP Order Info: [id number] - LIPID Order Info: [id number] - TSH Performed By: #### L 500.4050, L500.4100, L501.9520, L506.1000, L100.0100 #### [facility] [address] [place], [address] Triglyceride [Mass/Vol] 54 mg/dL Normal [facility] Comment on above: Order Comment: Order Date: 05/27/24 Order Info: [id number] - CMP Order Info: [id number] - LIPID Order Info: [id number] - TSH Result Comment: The drugs N-Acetylcysteine and Metamizole may falsely depress this assay. Serum Triglycerides Reference Interval Normal <150 mg/dL Borderline high 150 - 199 mg/dL High 200 - 499 mg/dL Very High > or = 500 mg/dL Performed By: #### L 500.4050, L500.4100, L501.9520, L506.1000, L100.0100 #### [facility] [address] [place], [place], [id number] Thyroid Stim Hormone (TSH)on 05-27-2024 TSH 1.030 uIU/mL Normal 0.358-3.740 [facility] Comment on above: Order Comment: Order Date: 05/27/24 Order Info: [id number] - CMP Order Info: [id number] - LIPID Order Info: [id number] - TSH Performed By: #### L 500.4050, L500.4100, L501.9520, L506.1000, L100.0100 #### [facility] [address] [place], [place], [id number] Vitamin D,25 Hydroxyon 05-27 Vitamin D 25-OH 41.8 ng/mL Normal [facility] Comment on above: Order Comment: Order Date: 05/27/24 Order Info: [id number] - VITD25 Result Comment: Glory min D 25(OH) Status Range Deficiency <20 ng/mL (50nmol/L) Insufficiency 20 - 30 ng/mL (50 - 75 nmol/L) Sufficiency 30 - 100 ng/mL (75 - 250 nmol/L) Toxicity >100 ng/mL (>250 nmol/L) Performed By: #### L 500.4050, L500.4100, L501.9520, L506.1000, L100.0100 #### [facility] [address] [place], [place], [id number] Absolute lymphocyte countOrd ered By: Eric Gee on 06-01-2023 Lymphocytes Auto (Unsp spec) [#/Vol] 1.14 10*3/uL 0.83-4.51 [facility] Basophil percentageOrdered B y: Eric Gee on 06-01-2023 Basophils/100 WBC (Bld) 0.7 % 0-1 [facility] Bilirubin [Mass/Vol] 0.60 mg/dL 0.20-1.00 [facility] Comment on above: For patients on eltr ombopag therapy, use of Dimension Mcallister TBIL is not recommended. Chloride [Moles/Vol] 108 mmol/L 98-107 [facility] Cholesterol [Mass/Vol] 165 mg/dL <200 [facility] Comment on above: <200 mg/dL Desirable 200-240 mg/dL Borderline >240 mg/dL High Risk Eosinophils/100 WBC (Bld) 5.8 % 0-5 [facility] Glucose [Mass/Vol] 89 mg/dL 74-106 [facility] Neutrophils (Bld) [#/Vol] 2.5 10*3/uL 2.0-7.7 [facility] Neutrophils/100 WBC (Bld) 58.8 % 47-70 [facility] Potassium [Moles/Vol] 3.7 mmol/L 3.5-5.1 [facility] Protein [Mass/Vol] 7.1 g/dL 6.4-8.2 [facility] Sodium [Moles/Vol] 141 mmol/L 136-145 [facility] Triglyceride [Mass/Vol] 57 mg/dL <199 [facility] Comment on above: The drugs N-Acetylcy steine and Metamizole may falsely depress this assay.Serum Triglycerides Reference Interval Normal <150 mg/dL Borderline high 150 - 199 mg/dL High 200 - 499 mg/dL Very High > or = 500 mg/dL WBC (Bld) [#/Vol] 4.3 10*3/uL 4.4-11.0 [facility] Blood erythrocytes count (nu mber/volume)Ordered By: Eric Gee on 06-01-2023 RBC (Bld) [#/Vol] 4.20 10*6/uL 4.2-5.4 [facility] Blood hemoglobin measurement (mass/volume)Ordered By: Eric Gee on 06-01-2023 Hemoglobin (Bld) [Mass/Vol] 13.2 g/dL 12.0-15.0 [facility] Blood lymphocytes/100 leukoc ytesOrdered By: Eric Gee on 06-01-2023 Lymphocytes/100 WBC (Bld) 26.4 % 19-41 [facility] Blood monocytes/100 leukocyt esOrdered By: Eric Gee on 06-01-2023 Monocytes/100 WBC (Bld) 8.1 % 0-10 [facility] Blood platelet mean volumeOr dered By: Eric Gee on 06-01-2023 Platelet mean volume (Bld) [Entitic vol] 9.9 fL 6.2-12.0 [facility] Determination of erythrocyte mean corpuscular volume (MCV)Or[facility] By: [facility] on 06-01-2023 MCV (RBC) [Entitic vol] 92.4 fL 81-99 [facility] Hematocrit Auto (Bld) [Volum e fraction][facility]23 Hematocrit (Bld) [Volume fraction] 38.8 % 37-47 [facility] - Chemistry and C hemistry - challengeOrdered By: [facility] on 06-01-2023 ALP [Catalytic activity/Vol] 68 U/L 45-117 [facility] ALT [Catalytic activity/Vol] 28 U/L 13-56 [facility] CO2 [Moles/Vol] 29.0 mmol/L 21.0-32.0 [facility] Globulin (S) [Mass/Vol] 3.4 g/dL 2.2-4.2 [facility] Urea nitrogen/Creatinine [Mass ratio] 19.8 mg/mg 10-20 [facility] - Hematology and Cell countsOrdered By: [facility] on 06-01-2023 Erythrocyte distribution width (RBC) [Entitic vol] 43.7 fL 35.1-43.9 [facility] Erythrocyte distribution width (RBC) [Ratio] 13.0 % 11.6-14.6 [facility] Immature granulocytes/100 WBC (Bld) 0.200 % 0.0-0.9 [facility] Comment on above: IG% - Immature Granu locytes (promyelocytes, myelocytes and metamyelocytes) > 1% indicates that a LEFT SHIFT is Present. MCH (RBC) [Entitic mass] 31.4 pg 27.0-32.0 [facility] Nucleated RBC/100 WBC (Bld) [Ratio] 0 % 0-5 [facility] MCHC Auto (RBC) [Mass/Vol]Or dered By: [facility] on 06-01-2023 MCHC (RBC) [Mass/Vol] 34.0 g/dL 32-36 [facility] No Panel InformationOrdered By: Eric Gee on 06-01-2023 Estimated GFR (MDRD) Amer 66 mL/min >60 [facility] Comment on above: GFR Calc Estimated GFR (MDRD) Non-Af Amer 55 mL/min >60 [facility] Comment on above: Non- GFR Calc Thyroid Stimulating Hormone (TSH) 1.01 uIU/mL 0.358-3.74 [facility] Platelets bldOrdered By: Dorcas Gee on 06-01-2023 Platelets (Bld) [#/Vol] 247 10*3/uL 150-450 [facility] Serum or plasma albumin josey urement (mass/volume)Ordered By: Eric Gee on 06-01-2023 Albumin [Mass/Vol] 3.7 g/dL 3.2-5.0 [facility] Serum or plasma albumin/glob ulin mass ratioOrdered By: Eric Gee on 06-01-2023 Albumin/Globulin [Mass ratio] 1.1 {ratio} 0.9-2.4 [facility] Serum or plasma calcium josey urement (mass/volume)Ordered By: Eric Gee on 06-01-2023 Calcium [Mass/Vol] 9.4 mg/dL 8.5-10.1 [facility] Serum or plasma cholesterol in HDL measurement (mass/volume)Ordered By: Eric Gee on 06-01-2023 Cholesterol in HDL [Mass/Vol] 87 mg/dL >40 [facility] Comment on above: The drugs N-Acetylcy steine and Metamizole may falsely depress this assay. Reference Range HDL <40 mg/dL Low HDL Cholesterol HDL >or= 60 mg/dL High HDL Cholesterol Serum or plasma cholesterol in VLDL measurement (mass/volume)Ordered By: Eric Gee on 06-01-2023 Cholesterol in VLDL [Mass/Vol] 11 mg/dL 5-40 [facility] Serum or plasma creatinine m easurement (mass/volume)Ordered By: Eric Gee on 06-01-2023 Creatinine [Mass/Vol] 1.06 mg/dL 0.55-1.02 [facility] Comment on above: The validity of the calculated GFR & GFRAA in patients over 70 years has not been determined. Clinical correlation is essential. Serum or plasma low density lipoprotein (LDL) cholesterol measurement (mass/volume)Ordered By: Eric Gee on 06-01-2023 Cholesterol in LDL [Mass/Vol] 67 mg/dL 0-130 [facility] Serum or plasma urea nitroge n measurement (mass/volume)Ordered By[facility] on 06-01-2023 Urea nitrogen [Mass/Vol] 21 mg/dL 7-18 [facility] Thin prep Papanicolaou smear with manual screeningOrdered By: [facility] on 06-01-2023 Thin prep Papanicolaou smear with manual screening 29 U/L 15-37 [facility] Thin prep Papanicolaou smear with manual screening 4 5-15 [facility] Office Visit (Internal Medic ine)on 11-30-2021 Follow-up visit Diagnoses/Problems Assessed Spider bite wound, accidental or unintentional, initial encounter (989.5,E905.1) (T63.301A) Patient Discussion/Summary Spider bite mid back: Healing is nearly complete. No further intervention required. Follow-up as needed. Chief Complaint Patient here today to be seen for a 1 month follow-up spider bite if the mid lower back. Patient offers no complaints and states it has been healing well without any symptoms to offer. History of Present IllnessPatient presents for reevaluation of spider bite. Patient was seen and treated here 2 weeks ago for spider bite in the mid back that had started healing at that time. Patient compliant with medications and has no other complaints at this time. Review of Systems Constitutional: no fever. Skin: as noted in HPI. Active Problems Problems Encounter for immunization (V03.89) (Z23) Encounter for Medicare annual wellness exam (V70.0) (Z00.00) Encounter for screening mammogram for breast cancer (V76.12) (Z12.31) HTN (hypertension) (401.9) (I10) Hyperlipidemia (272.4) (E78.5) Overactive bladder (596.51) (N32.81) Post-menopausal (V49.81) (Z78.0) Screening for osteoporosis (V82.81) (Z13.820) Spider bite wound, accidental or unintentional, initial encounter (989.5,E905.1) (T63.301A) Past Medical History Problems History of mammogram (V15.89) (Z92.89) 07/2018 History of Papanicolaou smear (V45.89) (Z98.890) 04/2018 History of stress test (V15.89) (Z92.89) Surgical History Problems History of section History of Cholecystectomy History of Colonoscopy History of Tubal ligation Family History Mother Family history of cardiac disorder (V17.49) (Z82.49) Family history of hypertension (V17.49) (Z82.49) Family history of kidney disease (V18.69) (Z84.1) Family history of malignant neoplasm of urinary bladder (V16.52) (Z80.52) Family history of type 2 diabetes mellitus (V18.0) (Z83.3) Father Family history of chronic obstructive pulmonary disease (V17.6) (Z82.5) Sister Family history of hypertension (V17.49) (Z82.49) Family history of malignant neoplasm of breast (V16.3) (Z80.3) Family history of pancreatic cancer (V16.0) (Z80.0) Grandparent Family history of cerebrovascular accident (CVA) (V17.1) (Z82.3) Social History Problems Caffeine use (V49.89) (Z78.9) Tea. Denies alcohol consumption (V49.89) (Z78.9) No illicit drug use Non-smoker (V49.89) (Z78.9) Patient has living will (V49.89) (Z78.9) Allergies Medication codeine Recorded By: Martha Brooks; 12/30/2019 8:16:28 AM Additional reactions - Nausea and vomiting Current Meds Medication NameInstruction Aleve 220 MG Oral TabletTAKE 1 TABLET 3 TIMES DAILY NEEDED. Carol TABSTAKE 1 TABLET DAILY. Aspirin EC 81 MG Oral Tablet Delayed ReleaseTAKE 1 TABLET DAILY. hydroCHLOROthiazide 12.5 MG Oral CapsuleTAKE 1 CAPSULE ONCE DAILY. Losartan Potassium 100 MG Oral TabletTake 1 tablet daily Lovastatin 20 MG Oral TabletTAKE 1 TABLET DAILY DIRECTED. Mupirocin 2 % External OintmentAPPLY SPARINGLY TO AFFECTED AREA(S) TWICE DAILY Tolterodine Tartrate ER 4 MG Oral Capsule Extended Release 24 HourTAKE 1 TABLET BY MOUTH DAILY Vitals Vital Signs Recorded: 30Nov2021 08:21AM Wgkbiglawti00.7 F Heart Rate70 Xdycdotk875 Hvinkpecx11 Height5 ft 2 in Yvmfif625 lb 6.4 oz BMI Zsgkjbxqok70.97 kg/m2 BSA Calculated1.73 Tobacco Useb) No PHQ-2 #1. Over the last 2 weeks have you felt down, depressed or hopeless? (If yes, answer PHQ-9 below)No Fall Screeninga) No falls within the last year O2 Ybwshzojeo42, RA Physical Exam Constitutional General appearance: Alert and in no acute distress. Eyes Inspection of eyes: Sclera and conjunctiva were normal. Pulmonary Respiratory assessment: No respiratory distress, normal respiratory rhythm and effort. Skin Mid back wound with 2 small areas of eschar, healing is nearly complete; scar tissue spans diameter of the wound. Neurologic Cranial nerves: Nerves 2-12 were intact, no focal neuro defects. Psychiatric Orientation: Oriented to person, place, and time. Signatures Electronically signed by : Vinay Wiggins PA-C; Nov 30 2021 8:27AM EST (Author) Normal [facility] Tobacco Screening.on 022 Adult depression screening assessment No [facility] Work Phone: Fall risk assessment a) No falls within the last year [facility] Work Phone: Tobacco use status CPHS b) No [facility] Work Phone: Office Visit (Internal Medic ine)on 11-20-2021 Follow-up visit Diagnoses/Problems Assessed Spider bite wound, accidental or unintentional, initial encounter (989.5,E905.1) (T63.301A) Orders Spider bite wound, accidental or unintentional, initial encounter Start: Mupirocin 2 % External Ointment; APPLY SPARINGLY TO AFFECTED AREA(S) TWICE DAILY Rx By: Vinay Wiggins; Dispense: 7 Days ; #:1 X 15 GM Tube; Refill: 0;For: Spider bite wound, accidental or unintentional, initial encounter; DESTINY = N; Sent To: [facility]; Last Updated By: System, MessageCenter; 11/20/2021 1:11:39 PM Patient Discussion/Summary Exam is consistent with brown recluse bite of the mid back. Continue doxycycline, add Bactroban. Wound was cleansed and dressed in the office. Wound care moving forward reviewed. We will have the patient return in 9 days for reevaluation. However, patient advised that should the wound continue to worsen, contact office and will refer to general surgery. Chief Complaint Patient here today to be seen for ? spider bite x 3 weeks and seen at Urgent Care last week. Patient prescribed Doxycycline that she is still taking. Patient states she went mushroom hunting, felt a bump on her back and thought it was a mole then question a tick. Patient states at this time she is still having skin irritation with a tightness AND pulling sensation. History of Present IllnessPatient presents for evaluation of suspected spider bite. Patient was mushroom hunting in the [facility] and suffered an insect bite to the mid back. Patient was initially unimpressed thinking it might have been a tick bite and was evaluated in urgent care 5 days ago approximately 2-1/2 weeks after the initial incident. Patient was treated with doxycycline and is currently taking it. Initially, the patient states the wound looks like a pustule that has progressively worsened since then eventually progressing into a large circular wound with eschar. There is mild tenderness and erythema at the margins. No other similar wounds. Review of Systems Constitutional: no fever. Skin: as noted in HPI. Active Problems Problems Encounter for immunization (V03.89) (Z23) Encounter for Medicare annual wellness exam (V70.0) (Z00.00) Encounter for screening mammogram for breast cancer (V76.12) (Z12.31) HTN (hypertension) (401.9) (I10) Hyperlipidemia (272.4) (E78.5) Overactive bladder (596.51) (N32.81) Post-menopausal (V49.81) (Z78.0) Screening for osteoporosis (V82.81) (Z13.820) Past Medical History Problems History of mammogram (V15.89) (Z92.89) 07/2018 History of Papanicolaou smear (V45.89) (Z98.890) 04/2018 History of stress test (V15.89) (Z92.89) Surgical History Problems History of section History of Cholecystectomy History of Colonoscopy History of Tubal ligation Family History Mother Family history of cardiac disorder (V17.49) (Z82.49) Family history of hypertension (V17.49) (Z82.49) Family history of kidney disease (V18.69) (Z84.1) Family history of malignant neoplasm of urinary bladder (V16.52) (Z80.52) Family history of type 2 diabetes mellitus (V18.0) (Z83.3) Father Family history of chronic obstructive pulmonary disease (V17.6) (Z82.5) Sister Family history of hypertension (V17.49) (Z82.49) Family history of malignant neoplasm of breast (V16.3) (Z80.3) Family history of pancreatic cancer (V16.0) (Z80.0) Grandparent Family history of cerebrovascular accident (CVA) (V17.1) (Z82.3) Social History Problems Caffeine use (V49.89) (Z78.9) Tea. Denies alcohol consumption (V49.89) (Z78.9) No illicit drug use Non-smoker (V49.89) (Z78.9) Patient has living will (V49.89) (Z78.9) Allergies Medication codeine Recorded By: Martha Brooks; 12/30/2019 8:16:28 AM Additional reactions - Nausea and vomiting Current Meds Medication NameInstruction Aleve 220 MG Oral TabletTAKE 1 TABLET 3 TIMES DAILY NEEDED. Carol TABSTAKE 1 TABLET DAILY. Aspirin EC 81 MG Oral Tablet Delayed ReleaseTAKE 1 TABLET DAILY. hydroCHLOROthiazide 12.5 MG Oral CapsuleTAKE 1 CAPSULE ONCE DAILY. Lisinopril 20 MG Oral TabletTAKE 1 TABLET DAILY DIRECTED. Losartan Potassium 100 MG Oral TabletTake 1 tablet daily Lovastatin 20 MG Oral TabletTAKE 1 TABLET DAILY DIRECTED. Tolterodine Tartrate ER 4 MG Oral Capsule Extended Release 24 HourTAKE 1 TABLET BY MOUTH DAILY Vitals Vital Signs Recorded: [id number] 12:57PM Slbtzcjuqhl34.7 Dllfmsag593 Wvffvutdq98 Height5 ft 5.5 in Ivdiwi791 lb 6.4 oz BMI Dsvtcivvna49.63 kg/m2 BSA Calculated1.79 Tobacco Useb) No PHQ-2 #1. Over the last 2 weeks have you felt down, depressed or hopeless? (If yes, answer PHQ-9 below)No Fall Screeningb) One or more falls in the last year O2 Cuctupnljh55, RA Physical Exam Constitutional General appearance: Alert and in no acute distress. Eyes Inspection of eyes: Sclera and conjunctiva were normal. Ears, Nose, Mouth, and Throat Ears: Auricles: Normal. Pulmonary Respiratory assessment: No (more content not included)... Normal [facility] Tobacco Screening.on 022 Adult depression screening assessment No [facility] Work Phone: Fall risk assessment b) One or more fall s in the last year [facility] Work Phone: Tobacco use status CPHS b) No [facility] Work Phone: Provider Note - ED v3on 10-31 Provider Note - ED v3 Provider Note: Chart Review: ED NOTES ED NOTES: Patient presents for evaluation of insect bite with redness surrounding to middle low back that has been ongoing for the past week. Pt states she initially thought it was a mole. She states she went [place] in the [place] to onset of lesion. Denies fever, n/v/d, fatigue, weakness, headache, body aches, chest pains, SOB or any other associated constitutional symptoms or complaints. HISTORY OF PRESENTING ILLNESS LEANDER is a 66 year old Female and was seen by me at 15-Nov-2021 09:49. Triage Information: Most recent Vital Sign Value Date PAST MEDICAL HISTORY ALLERGIES/INTOLERANCES : No Known Allergies HEALTH HISTORY: Medical History Name:Hypertension Code:I10 Name:High cholesterol Code:E78.00 OUTPATIENT MEDICATIONS: Home Medications Review Status for Reconciliation: Complete Med Status: Patient Currently Takes Medications Drug Name: losartan 100 mg oral tablet Instructions: 1 tab(s) orally once a day Drug Name: hydroCHLOROthiazide 12.5 mg oral tablet Instructions: 1 tab(s) orally once a day Drug Name: lovastatin 20 mg oral tablet Instructions: 1 tab(s) orally once a day Drug Name: tolterodine 4 mg oral capsule, extended release Instructions: 1 cap(s) orally once a day Drug Name: doxycycline hyclate 100 mg oral tablet Instructions: 1 tab(s) orally 2 times a day SIGNIFICANT EVENTS: No documented data. REVIEW OF SYSTEMS All other systems reviewed and are negative REVIEW OF SYSTEMS: Comments See HPI PHYSICAL EXAM CONSTITUTIONAL: Well appearing, well nourished, awake, alert, oriented to person, place, time/situation and in no apparent distress. NEUROLOGICAL: Alert and oriented, no focal deficits, no motor or sensory deficits. SKIN: Skin normal color for race, warm, dry and intact except for insect bite to center of lower back with vesicles and surrounding erythema, no streaking or drainage. No central clearing or EM noted. PSYCHIATRIC: Alert and oriented to person, place, time/situation. normal mood and affect. No apparent risk to self or others. CRITICAL CARE VITAL SIGNS: T PRBP SpO2O2(LPM) %FiO2 Method 15-Nov-2021 09:40:[id number] 8 96RA MDM MDM/ED COURSE: Discussed Findings with: patient Treatment Plan: Rx doxycycline. Patient's clinical presentation is otherwise unremarkable at this time. Patient is discharged with instructions to follow-up with primary care or seek emergency medical attention for worsening symptoms or any new concerns. DISPOSITION Diagnosis/Annotation: ED Dx Name:Cellulitis Code:L03.90 Disposition: discharged Type: home CONSULT CRITICAL CARE TIME Is this a critically ill patient: no Electronic Signatures: Ba Yousif (JUDICIAL REGISTRAR-[employer]SEMBLY TEAM WORKER) (Signed 15-Nov-2021 10:59) Authored: ED Notes, HPI, PMH, ROS, PE, Results/Vital Signs, MDM/ED Course, Clinical Impression, Attestation, Chart Review, Scores Last Updated: 15-Nov-2021 10:59 by Ba Yousif (JUDICIAL REGISTRAR-SUB ASSEMBLY TEAM WORKER) Normal [facility] Lipid Panelon 12-30-2019 Cholesterol [Mass/Vol] 197 mg/dL 0 - 199 [facility] Work Phone: Comment on above: . AGE DESIRABLE BORD TAMARA HIGH HIGH 0-19 Y 0 - 169 170 - 199 >/= 200 20-24 Y 0 - 189 190 - 224 >/= 225 >24 Y 0 - 199 200 - 239 >/= 240 All ranges are based on fasting samples. Specific therapeutic targets will vary based on patient-specific cardiac risk.. Pediatric guidelines reference:Pediatrics 2011, 128(S5). Adult guidelines reference: NCEP ATPIII Guidelines, PIPE 2001, 258:2486-97. Venipuncture immediately after or during the administration of Metamizole may lead to falsely low results. Testing should be performed immediately prior to Metamizole dosing. Cholesterol in HDL [Mass/Vol] 81.0 mg/dL [facility] Work Phone: Comment on above: . AGE VERY LOW LOW N ORMAL HIGH 0-19 Y < 35 < 40 40-45 ---- 20- 24 Y ---- < 40 >45 ---- >24 Y ---- < 40 40-60 >60. Cholesterol in LDL [Mass/Vol] 107 mg/dL above high threshold 0 - 99 [facility] Work Phone: Comment on above: . NEAR BORD AGE NHUNG RABLE OPTIMAL HIGH HIGH VERY HIGH 0-19 Y 0 - 109 --- 110-129 >/= 130 ---- 20-24 Y 0 - 119 --- 120-159 >/= 160 ---- >24 Y 0 - 99 100-129 130-159 160-189 >/=190. Cholesterol.total/Cho lesterol in HDL [Mass ratio] 2.4 {ratio} [facility] Work Phone: Comment on above: REF VALUESDESIRABLE < 3.4HIGH RISK > 5.0 Triglyceride [Mass/Vol] 47 mg/dL 0 - 149 [facility] Work Phone: Comment on above: . AGE DESIRABLE BORD TAMARA HIGH HIGH VERY HIGH 0 D-90 D 19 - 174 ---- ---- ----91 D- 9 Y 0 - 74 75 - 99 >/= 100 ---- 10-19 Y 0 - 89 90 - 129 >/= 130 ---- 20-24 Y 0 - 114 115 - 149 >/= 150 ---- >24 Y 0 - 149 150 - 199 200- 499 >/= 500. Venipuncture immediately after or during the administration of Metamizole may lead to falsely low results. Testing should be performed immediately prior to Metamizole dosing. Lipid Panel 9 mg/dL 0 - 40 [facility] Work Phone: Metabolic Panelon 12-30-2019 ALP [Catalytic activity/Vol] 60 U/L 33 - 136 [facility] Work Phone: [phone] Anion gap [Moles/Vol] 9 mmol/L below low threshold 10 - 20 [facility] Work Phone: [phone] Bilirubin [Mass/Vol] 0.6 mg/dL 0.0 - 1.2 [facility] Work Phone: [phone] Calcium [Mass/Vol] 10.0 mg/dL 8.6 - 10.3 [facility] Work Phone: [phone] Chloride [Moles/Vol] 105 mmol/L 98 - 107 [facility] Work Phone: [phone] CO2 [Moles/Vol] 30 mmol/L 21 - 32 [facility] Work Phone: [phone] Creatinine [Mass/Vol] 0.98 mg/dL See Below [facility] Work Phone: [phone] Comment on above: Reference Range: 0.5 0 - 1.05 Glucose [Mass/Vol] 84 mg/dL 74 - 99 [facility] Work Phone: [phone] Potassium [Moles/Vol] 3.9 mmol/L 3.5 - 5.3 [facility] Work Phone: [phone] Protein [Mass/Vol] 7.1 g/dL 6.4 - 8.2 [facility] Work Phone: [phone] Sodium [Moles/Vol] 140 mmol/L 136 - 145 [facility] Work Phone: [phone] Urea nitrogen [Mass/Vol] 23 mg/dL 6 - 23 [facility] Work Phone: Otheron 12-30-2019 Albumin BCP dye [Mass/Vol] 4.4 g/dL 3.4 - 5.0 [facility] Work Phone: ALT With P-5'-P [Catalytic activity/Vol] 24 U/L 7 - 45 [facility] Work Phone: Comment on above: Patients treated wit h Sulfasalazine may generate falsely decreased results for ALT. AST With P-5'-P [Catalytic activity/Vol] 24 U/L 9 - 39 [facility] Work Phone: 69 {mL/min/1.73m2} >60 [facility] [facility] Work Phone: Comment on above: CALCULATIONS OF CHIQUITA MATED GFR ARE PERFORMED USING THE MDRD STUDY EQUATION FOR THE IDMS-TRACEABLE CREATININE METHODS. CLIN CHEM 2007;53:766-72 57 {mL/min/1.73m2} Abnormal >60 [facility] Work Phone: MA Mamm Screen w/CAD if perf and 3D Bilon 07-05-2018 Bilirubin.direct mass conc Exam Date/Time: 07/05/2018 09:09 EST Reason for Exam: SCREENING 3D Report STUDY: Digital mammography screening with cindy; 07/05/2018 9:09 am ACCESSION NUMBER(S): [id number] ORDERING CLINICIAN: Shanice Ambrose INDICATION: Screening. COMPARISON: Comparison is made to prior digital mammograms dated08/14/2017 and 08/10/2016 FINDINGS: CC and MLO 2D digital mammograms and digital breast tomosynthesis images were obtained of the bilateral breasts. 3-D volume images were reconstructed in 4 views at an independent workstation as 1 mm slices through the breasts in both the CC and MLO projections. There are areas of scattered fibroglandular tissue. No discrete mass or focal asymmetry is identified. No suspicious microcalcifications or foci of architectural distortion are seen. There has been no significant change. This study was interpreted with CAD. IMPRESSION: No mammographic evidence of malignancy. BI-RADS CATEGORY: Category: 1 - Negative. Recommendation: Normal Interval Follow-up, Over Age 40. Recall Interval: 12 Months. Breast Density: Scattered Fibroglandular Density. FINAL REPORT Dictated: 07/05/2018 9:32 am Nicolas Garcia MD Signed (Electronic Signature): 07/05/2018 9:32 am Signed by: Nicolas Garcia MD Technologist: MG[facility] Assessment: BI-RADS Category 1-Negative Recommendation: Normal interval follow-up Normal [facility] ECG 12 [place] 01-10-2018 Atrial Rate Invalid Interpretation Code [facility] P [place] Invalid Interpretation Code [facility] P-R Interval Invalid Interpretation Code [facility] Q-T Interval Invalid Interpretation Code [facility] Q-T Interval (corrected) Invalid Interpretation Code [facility] QRS Duration Invalid Interpretation Code [facility] QTC Calculation (Bezet) Invalid Interpretation Code [facility] R [place] Invalid Interpretation Code [facility] T [place] Invalid Interpretation Code [facility] Ventricular Rate Invalid Interpretation Code [facility] Vital Signs Date Time Vital Sign Value Performing Clinician Facility 11-30-2021 08:21-0400 Body height 157.48 cm Mel L Oberhauser Work Phone: [facility] Work Phone: 11-30-2021 08:21-0400 Body mass index (BMI) [Ratio] 28.97 kg/m2 Mel L Oberhauser Work Phone: [facility] Work Phone: 11-30-2021 08:21-0400 Body surface area Derived from formula 1.73 m2 Mel L Oberhauser Work Phone: [facility] Work Phone: 11-30-2021 08:21-0400 Body temperature 98.7 [degF] Mel L Oberhauser Work Phone: [facility] Work Phone: 11-30-2021 08:21-0400 Body weight 71.85 kg Mel L Oberhauser Work Phone: [facility] Work Phone: 11-30-2021 08:21-0400 Diastolic blood pressure 80 mm[Hg] Mel L Oberhauser Work Phone: [facility] Work Phone: 11-30-2021 08:21-0400 Heart rate 70 /min Mel L Oberhauser Work Phone: [facility] Work Phone: 11-30-2021 08:21-0400 SaO2% (BldA) [Mass fraction] 98 % Mel L Oberhauser Work Phone: [facility] Work Phone: 11-30-2021 08:21-0400 Systolic blood pressure 134 mm[Hg] Mel L Oberhauser Work Phone: [facility] Work Phone: 11-20-2021 12:57-0400 Body height 166.37 cm Mel L Oberhauser Work Phone: [facility] Work Phone: 11-20-2021 12:57-0400 Body mass index (BMI) [Ratio] 25.63 kg/m2 Mel L Oberhauser Work Phone: [facility] Work Phone: 11-20-2021 12:57-0400 Body surface area Derived from formula 1.79 m2 Mel L Oberhauser Work Phone: [facility] Work Phone: 11-20-2021 12:57-0400 Body weight 70.94 kg Mel L Oberhauser Work Phone: [facility] Work Phone: 11-20-2021 12:57-0400 Diastolic blood pressure 80 mm[Hg] Mel L Oberhauser Work Phone: [facility] Work Phone: 11-20-2021 12:57-0400 Respiratory rate 97.7 /min Mel L Oberhauser Work Phone: [facility] Work Phone: 11-20-2021 12:57-0400 SaO2% (BldA) [Mass fraction] 96 % Mel Mejia Oberhauser Work Phone: [facility] Work Phone: 11-20-2021 12:57-0400 Systolic blood pressure 144 mm[Hg] Mel Mejia Oberhauser Work Phone: [facility] Work Phone: 11-15-2021 11:40-0400 Body height 157 cm Mel Obersánchezer Other Phone: [facility] 11-15-2021 11:40-0400 Body temperature 97.88 [degF] Mel Obersánchezer Other Phone: [facility] 11-15-2021 11:40-0400 Diastolic blood pressure 88 mm[Hg] Mel Obersánchezer Other Phone: [facility] 11-15-2021 11:40-0400 Heart rate 99 /min Mel Martinsersánchezer Other Phone: [facility] 11-15-2021 11:40-0400 SaO2% (BldA) [Mass fraction] 96 % Mel Martinsersánchezer Other Phone: [facility] 11-15-2021 11:40-0400 Systolic blood pressure 128 mm[Hg] Mel Obersánchezer Other Phone: [facility] 12-30-2019 11:39-0400 BMI (Body Mass Index) 27.37 kg/m2 Mel Montalvo [facility] Work Phone: 12-30-2019 11:39-0400 Body Temperature 98.3 [degF] Mel Montalvo [facility] Work Phone: 12-30-2019 11:39-0400 Body weight 75.75 kg Mel Montalvo [facility] Work Phone: 12-30-2019 11:39-0400 BP Diastolic 89 mm[Hg] Mel Montalvo [facility] Work Phone: 12-30-2019 11:39-0400 BP Systolic 135 mm[Hg] Mel Montalvo [facility] Work Phone: 12-30-2019 11:39-0400 BSA (Body Surface Area) 1.84 m2 Mel Montalvo [facility] Work Phone: 12-30-2019 11:39-0400 Height 166.37 cm Mel Montalvo [facility] Work Phone: 12-30-2019 11:39-0400 Pulse (Heart Rate) 66 /min Mel Montalvo [facility] Work Phone: 01-10-2018 13:09-0400 BP Diastolic 80 mm[Hg] 01-10-2018 13:09-0400 BP Systolic 122 mm[Hg] Encounters Encounter Date Encounter Type Care Provider Facility Start: 01-28-2025 ambulatory [facility] Facility:[facility] Start: 05-27-2024 End: 05-27-2024 ambulatory [facility] Facility:[facility] Start: 06-01-2023 End: 06-01-2023 ambulatory [facility] Work Phone: Start: 06-01-2023 End: 06-01-2023 Patient encounter procedure [facility] Start: 01-12-2022 End: 01-12-2022 Patient encounter procedure [facility] Start: 12-30-2021 AUDIT Mel Wilder user Work Phone: [facility] Work Phone: Start: 12-06-2021 Rx Renewal Mel Mejia Oberha user Work Phone: [facility] Work Phone: Start: 11-30-2021 Office outpatient vi sit 10 minutes Mel Mejia Objjhauser Work Phone: [facility] Work Phone: Start: 11-15-2021 End: 11-15-2021 Emergency department patient visit [facility] Start: 10-26-2021 AUDIT Mel Mejia Oberha user Work Phone: [facility] Work Phone: Start: 10-07-2021 AUDIT Mel Jackie Oberha user Work Phone: [facility] Work Phone: Start: 09-22-2021 AUDIT Mel Mejia Oberha user Work Phone: [facility] Work Phone: Start: 01-12-2021 Telephone encounter Mel [facility] Eliezer [facility] Work Phone: Start: 12-30-2020 AUDIT Mel Jackie Oberha user Work Phone: [facility] Work Phone: Start: 12-17-2020 AUDIT Mel Jackie Oberha user Work Phone: [facility] Work Phone: Start: 12-30-2019 Patient encounter procedure Mel Montalvo [facility] Work Phone: Start: 09-17-2018 End: 09-18-2018 Patient encounter procedure Mel Montalvo Facility:[facility] Start: 07-05-2018 End: 07-06-2018 Patient encounter procedure Shanice Ambrose Facility:[facility] Start: 07-05-2018 Patient encounter procedure Facility:[id number] Start: 01-10-2018 End: 01-10-2018 Ambulatory LAKHWINDER ARREOLA [facility] Start: 01-10-2018 End: 01-10-2018 Office outpatient visit 10 minutes Lakhwinder Arreola Work Phone: [facility] Office Patient encounter procedure Mel Montalvo Work Phone: [facility] Work Phone: Procedures Date Procedure Procedure Detail Performing Clinician Start: 01-12-2022 Screening mammography Start: 12-30-2019 Comprehensive metabo lic 2000 panel Mel Oberhauser Start: 12-30-2019 Lipid panel Mel Srikanth yuli Start: 08-19-2019 MG Breast screening Johanne an Oberhauser section Mel Oberh auser Cholecystectomy Mel Oberha user Colonoscopy Mel Aguilare r Ligation of fallopian tube M suha Montalvo Plan of Treatment Date Care Activity Detail Author Start: 02-02-2021 COLON, Provider: Evan Hartman, Status: Pen, Time: 12:00 PM COLON, Provider: Evan Hartman, Status: Pen, Time: 12:00 PM [facility] 120 Work Phone: Start: 08-19-2019 MG Breast screening Mamm - Scr eening Mammogram w/ Tomosynthesis [facility] Work Phone: Start: 03-03-2018 Influenza vaccination SEQUENTI AL INFLUENZA VACCINE (#1) [facility] Start: 2014 Zoster vaccine hzv l faby for subcutaneous use ZOSTER VACCINE [facility] Start: 1955 HEPATITIS C SCREENING HEPATITIS C SC REENING [facility] Start: 1955 [facility]ening [facility] Start: 1955 Screening for malign ant neoplasm of cervix PAP SMEAR [facility] Start: 1955 Tetanus vaccination TETANUS EVERY 10 YR [facility] H/O: section History of 2 sections [facility] H/O: tubal ligation History of t ubal ligation [facility] History of cholecystectomy History of cholecystectomy [facility] History of colonoscopy History of colonos copy [facility] History of colonoscopy History of colonos copy [facility] NEGATED: Highlighted row has been ruled out! Planned Goals not documented [facility] Work Phone: Immunizations Immunization Date Immunization Notes Care Provider Fa cilirene 06-11-2021 zoster vaccine recombinant Mel L Oberhauser Work Phone: [facility] Work Phone: Comment on above: Series: 2021 Moderna COVID-19 Vaccine 100 MCG/0.5ML Intramuscular Suspension Mel L Oberhauser Work Phone: [facility] Work Phone: 04-08-2021 influenza, high dose seasonal, preservative-free Mel L Oberhauser Work Phone: [facility] Work Phone: Comment on above: Series: 04-08-2021 influenza, seasonal, injectable Mel L Oberhauser Work Phone: [facility] Work Phone: Comment on above: Series: 04-08-2021 zoster vaccine recombinant Mel L Oberhauser Work Phone: [facility] Work Phone: Comment on above: Series: 10-02-2020 Moderna COVID-19 Vaccine 100 MCG/0.5ML Intramuscular Suspension Mel L Oberhauser Work Phone: [facility] Work Phone: 09-02-2020 Moderna COVID-19 Vaccine 100 MCG/0.5ML Intramuscular Suspension Mel L Oberhauser Work Phone: [facility] Work Phone: 04-03-2020 Fluzone High-Dose Quadrivalent 0.7 ML Intramuscular Suspension Prefilled Syringe Mel Montalvo Work Phone: [facility] Work Phone: 04-03-2020 pneumococcal conjuga te vaccine, 13 valent Mel Montalvo Work Phone: [facility] Work Phone: 04-18-2019 influenza, injectabl e, quadrivalent, contains preservative Mel Montalvo [facility] Work Phone: Comment on above: Series: 03-03-2018 influenza virus vaccine, unspecified formulation Mel Montalvo Work Phone: [facility] Work Phone: Comment on above: Series: 03-03-2018 influenza, seasonal, injectable Mel Montalvo [facility] Work Phone: 06-23-2016 tetanus toxoid, redu junior diphtheria toxoid, and acellular pertussis vaccine, adsorbed Mel Montalvo Work Phone: [facility] Work Phone: 04-21-2009 novel [id number], preservative-free, injectable Mel Montalvo Work Phone: [facility] Work Phone: Payers Date Payer Category Payer Medicare [id number] 2024 Self-pay [id number] 2024 Unknown [id number] 2019 Unknown 2016 Unknown [id number] 1955 Unknown [id number] Unknown [id number] Unknown [id number] Social History Date Type Detail Facility Start: 01-10-2018 Tobacco smoking stat NHIS Never smoker [facility] on [facility] Denies alcohol consumption Denies alcohol consumption [facility] Work Phone: Comment on above: Tea.; Start: 01-14-2020 End: 01-14-2020 Tobacco smoking consumption unknown [facility] Start: 1955 Sex Assigned At Female [facility] Functional Status Date Assessment Result Facility NEGATED: Highlighted row Functional performance Functional status health issues are not documented Disease [facility] Work Phone: Mental Status Date Assessment Result Facility NEGATED: Highlighted row Cognitive function [Interpretation] Cognitive status health issues are not documented Disease [facility] Work Phone: History of Present illness Narrative 11-16-2021 Note Date & Type Note Facility 11-16-2021 History of Present illness Narrative Patient presents for reevaluation of spider bite. Patient was seen and treated here 2 weeks ago for spider bite in the mid back that had started healing at that time. Patient compliant with medications and has no other complaints at this time. [facility] Work Phone: Evaluation note Note Date & Type Note Facility Evaluation note No assessment information availa [facility] Work Phone: Summary Purpose Family History No Family History Records Found Grandparent Name Dates Details Family history of cerebrovas cular accident (CVA)(V17.1, Z82.3) Status:Active Mother Name Dates Details Family history of malignant neoplasm of urinary bladder(V16.52, Z80.52) Status:Active Family history of hypertensi on(V17.49, Z82.49) Status:Active Family history of type 2 natalya betes mellitus(V18.0, Z83.3) Status:Active Family history of cardiac di sorder(V17.49, Z82.49) Status:Active Family history of kidney dis ease(V18.69, Z84.1) Status:Active Father Name Dates Details Family history of chronic ob structive pulmonary disease(V17.6, Z82.5) Status:Active Sister Name Dates Details Family history of hypertensi on(V17.49, Z82.49) Status:Active Family history of malignant neoplasm of breast(V16.3, Z80.3) Status:Active Family history of pancreatic cancer(V16.0, Z80.0) Status:Active Grandparent Name Dates Details Family history of cerebrovas cular accident (CVA)(V17.1, Z82.3) Status:Active Mother Name Dates Details Family history of malignant neoplasm of urinary bladder(V16.52, Z80.52) Status:Active Family history of hypertensi on(V17.49, Z82.49) Status:Active Family history of type 2 natalya betes mellitus(V18.0, Z83.3) Status:Active Family history of cardiac di sorder(V17.49, Z82.49) Status:Active Family history of kidney dis ease(V18.69, Z84.1) Status:Active Father Name Dates Details Family history of chronic ob structive pulmonary disease(V17.6, Z82.5) Status:Active Sister Name Dates Details Family history of hypertensi on(V17.49, Z82.49) Status:Active Family history of malignant neoplasm of breast(V16.3, Z80.3) Status:Active Family history of pancreatic cancer(V16.0, Z80.0) Status:Active Unknown Family Member Name Dates Details Family history of malignant neoplasm of urinary bladder: Mother(V16.52, Z80.52) Status:Active Family history of hypertensi on: Mother, Sister(V17.49, Z82.49) Status:Active Family history of type 2 natalya betes mellitus: Mother(V18.0, Z83.3) Status:Active Family history of cardiac di sorder: Mother(V17.49, Z82.49) Status:Active Family history of chronic ob structive pulmonary disease: Father(V17.6, Z82.5) Status:Active Family history of cerebrovas cular accident (CVA): Grandparent(V17.1, Z82.3) Status:Active Family history of malignant neoplasm of breast: Sister(V16.3, Z80.3) Status:Active Family history of kidney dis ease: Mother(V18.69, Z84.1) Status:Active Family history of pancreatic cancer: Sister(V16.0, Z80.0) Status:Active Unknown Family Member Name Dates Details Family history of malignant neoplasm of urinary bladder: Mother(V16.52, Z80.52) Status:Active Family history of hypertensi on: Mother, Sister(V17.49, Z82.49) Status:Active Family history of type 2 natalya betes mellitus: Mother(V18.0, Z83.3) Status:Active Family history of cardiac di sorder: Mother(V17.49, Z82.49) Status:Active Family history of chronic ob structive pulmonary disease: Father(V17.6, Z82.5) Status:Active Family history of cerebrovas cular accident (CVA): Grandparent(V17.1, Z82.3) Status:Active Family history of malignant neoplasm of breast: Sister(V16.3, Z80.3) Status:Active Family history of kidney dis ease: Mother(V18.69, Z84.1) Status:Active Family history of pancreatic cancer: Sister(V16.0, Z80.0) Status:Active Unknown Family Member Name Dates Details Family history of pancreatic cancer: Sister(V16.0, Z80.0) Status:Active Family history of kidney dis ease: Mother(V18.69, Z84.1) Status:Active Family history of malignant neoplasm of breast: Sister(V16.3, Z80.3) Status:Active Family history of cerebrovas cular accident (CVA): Grandparent(V17.1, Z82.3) Status:Active Family history of chronic ob structive pulmonary disease: Father(V17.6, Z82.5) Status:Active Family history of cardiac di sorder: Mother(V17.49, Z82.49) Status:Active Family history of type 2 natalya betes mellitus: Mother(V18.0, Z83.3) Status:Active Family history of hypertensi on: Mother, Sister(V17.49, Z82.49) Status:Active Family history of malignant neoplasm of urinary bladder: Mother(V16.52, Z80.52) Status:Active Unknown Family Member Name Dates Details Family history of malignant neoplasm of urinary bladder: Mother(V16.52, Z80.52) Status:Active Family history of hypertensi on: Mother, Sister(V17.49, Z82.49) Status:Active Family history of type 2 natalya betes mellitus: Mother(V18.0, Z83.3) Status:Active Family history of cardiac di sorder: Mother(V17.49, Z82.49) Status:Active Family history of chronic ob structive pulmonary disease: Father(V17.6, Z82.5) Status:Active Family history of cerebrovas cular accident (CVA): Grandparent(V17.1, Z82.3) Status:Active Family history of malignant neoplasm of breast: Sister(V16.3, Z80.3) Status:Active Family history of kidney dis ease: Mother(V18.69, Z84.1) Status:Active Family history of pancreatic cancer: Sister(V16.0, Z80.0) Status:Active Unknown Family Member Name Dates Details Family history of malignant neoplasm of urinary bladder: Mother(V16.52, Z80.52) Status:Active Family history of hypertensi on: Mother, Sister(V17.49, Z82.49) Status:Active Family history of type 2 natalya betes mellitus: Mother(V18.0, Z83.3) Status:Active Family history of cardiac di sorder: Mother(V17.49, Z82.49) Status:Active Family history of chronic ob structive pulmonary disease: Father(V17.6, Z82.5) Status:Active Family history of cerebrovas cular accident (CVA): Grandparent(V17.1, Z82.3) Status:Active Family history of malignant neoplasm of breast: Sister(V16.3, Z80.3) Status:Active Family history of kidney dis ease: Mother(V18.69, Z84.1) Status:Active Family history of pancreatic cancer: Sister(V16.0, Z80.0) Status:Active Unknown Family Member Name Dates Details Family history of malignant neoplasm of urinary bladder: Mother(V16.52, Z80.52) Status:Active Family history of hypertensi on: Mother, Sister(V17.49, Z82.49) Status:Active Family history of type 2 natalya betes mellitus: Mother(V18.0, Z83.3) Status:Active Family history of cardiac di sorder: Mother(V17.49, Z82.49) Status:Active Family history of chronic ob structive pulmonary disease: Father(V17.6, Z82.5) Status:Active Family history of cerebrovas cular accident (CVA): Grandparent(V17.1, Z82.3) Status:Active Family history of malignant neoplasm of breast: Sister(V16.3, Z80.3) Status:Active Family history of kidney dis ease: Mother(V18.69, Z84.1) Status:Active Family history of pancreatic cancer: Sister(V16.0, Z80.0) Status:Active Unknown Family Member Name Dates Details Family history of malignant neoplasm of urinary bladder: Mother(V16.52, Z80.52) Status:Active Family history of hypertensi on: Mother, Sister(V17.49, Z82.49) Status:Active Family history of type 2 natalya betes mellitus: Mother(V18.0, Z83.3) Status:Active Family history of cardiac di sorder: Mother(V17.49, Z82.49) Status:Active Family history of chronic ob structive pulmonary disease: Father(V17.6, Z82.5) Status:Active Family history of cerebrovas cular accident (CVA): Grandparent(V17.1, Z82.3) Status:Active Family history of malignant neoplasm of breast: Sister(V16.3, Z80.3) Status:Active Family history of kidney dis ease: Mother(V18.69, Z84.1) Status:Active Family history of pancreatic cancer: Sister(V16.0, Z80.0) Status:Active Unknown Family Member Name Dates Details Family history of malignant neoplasm of urinary bladder: Mother(V16.52, Z80.52) Status:Active Family history of hypertensi on: Mother, Sister(V17.49, Z82.49) Status:Active Family history of type 2 natalya betes mellitus: Mother(V18.0, Z83.3) Status:Active Family history of cardiac di sorder: Mother(V17.49, Z82.49) Status:Active Family history of chronic ob structive pulmonary disease: Father(V17.6, Z82.5) Status:Active Family history of cerebrovas cular accident (CVA): Grandparent(V17.1, Z82.3) Status:Active Family history of malignant neoplasm of breast: Sister(V16.3, Z80.3) Status:Active Family history of kidney dis ease: Mother(V18.69, Z84.1) Status:Active Family history of pancreatic cancer: Sister(V16.0, Z80.0) Status:Active Relationship Condition Age at Onset Recorded Date/T esperanza Not Specified Cardiac disease Unknown Malignant neoplasm Unknown Advance Directives No Advanced Directives Records FoundNo Advanced Directives Records FoundNo Advanced Directives Records FoundNo Advanced Directives Records FoundNo Advanced Directives Records FoundNo Advanced Directives Records Found Instructions Name Dates Details Instructions not documented Name Dates Details Instructions not documented Name Dates Details Instructions not documented Name Dates Details Instructions not documented Name Dates Details Instructions not documented Assessments Diagnosis PFO (patent foramen ovale) - Primary Ostium secundum type atrial septal defect Hypertension, unspecified ty pe Dyslipidemia Other and unspecified hyperlipidemia Chief Complaint Patient here today to be seen for a 1 month follow-up spider bite if the mid lower back. Patient offers no complaints and states it has been healing well without any symptoms to offer. Chief Complaint and Reason for Visit Chief Complaint SCREENING Additional Source Comments INFORMATION SOURCE (unrecogn ized section and content) DATE CREATED AUTHOR 01/10/2018 [place] [facility] DATE CREATED AUTHOR AUTHOR'S ORGANIZ ATION 07/07/2018 [facility] DATE CREATED AUTHOR AUTHOR'S ORGANIZ ATION 09/18/2018 [facility] DATE CREATED AUTHOR AUTHOR'S ORGANIZ ATION 11/21/2021 [facility] DATE CREATED AUTHOR AUTHOR'S ORGANIZ ATION 11/30/2021 [facility] DATE CREATED AUTHOR AUTHOR'S ORGANIZ ATION 01/25/2025 [facility] Assessment & Plan Note - Lakhwinder Arreola MD - 01/20/2018 6:18 PM EDTAssessment & Plan Note - Lakhwinder Arreola MD - 01/20/2018 6:18 PM EDT Miscellaneous Notes (unrecog nized section and content) Associated Problem(s): Dyslipidemia Currently on Mevacor 20 mg daily, we will try to get a copy of her last lipid profile Associated Problem(s): PFO (patent foramen ovale) No symptoms -- questionable per TTE from [place] -- cont ASA -- I did personally review the echo and was not impressed with PFO Associated Problem(s): HTN (hypertension) Generally blood pressure is well controlled, sometimes low. I will have her hold her hydrochlorothiazide and see if we can keep it controlled with losartan 100 mg daily. She will let us know.in this encounter <item> Privacy Markings (unrecogniz ed section and content) Section Author: Chantal Braswell PROHIBITION ON REDISCLOSURE OF CONFIDENTIAL INFORMATION This notice accompanies a disclosure of information concerning a client made to you with the consent of such client. Goals (unrecognized section and content) Goals may be documented in a n alternate sectionGoals may be documented in an alternate section Care Teams (unrecognized sec tion and content) Team Status: Active Member Role Status Dates Eric Gee MD Primary Care Provider Active Team Status: Inactive Member Role Status Dates Eric Gee MD Primary Care Provider, Attending [facility] ider Active FOR RECORDS PERTAINING TO PATIENTS WHO ARE OR HAVE BEEN ENROLLED IN A CHEMICAL DEPENDENCY/SUBSTANCEABUSE PROGRAM, SOME INFORMATION MAY BE OMITTED. This clinical summary was aggregated from multiple sources. Caution should be exercised in using it in the provision of clinical care. This summary normalizes information from multiple sources, and as a consequence, information in this document may materially change the coding, format and clinical context of patient data. In addition, data may be omitted in some cases. CLINICAL DECISIONS SHOULD BE BASED ON THE PRIMARY CLINICAL RECORDS. [employer] provides no warranty or guarantee of the accuracy or completeness of information in this document.
== END | disposition home or self-care (01) ==
LOC: OPBD 07:15
PROVIDERS: PCP Family Medicine; Referring Provider Family Medicine; Visit Provider Family Medicine
DX: Z12.31 Encounter for screening mammogram for malignant neoplasm of breast (principal); Z78.0 Asymptomatic menopausal state
CPT/HCPCS: 77063; 77067; 77080

== ENCOUNTER 2025-06-02 10:13 | Outpatient (CLI) | payer MEDICARE, OTHER, SELFPAY ==
[2025-06-02 12:21] LABS: Hematocrit 38.9 % (37-47); Hemoglobin 12.9 g/dL (12.0-15.0); Mean Corp Hgb Conc 33.2 g/dL (32-36); Mean Corpuscular Volume 94.2 fL (81-99); Mean Platelet Vol. 9.4 fl (6.2-12.0); Platelet Count 262 K/mm3 (150-450); RBC Distribution Width CV 13.1 % (11.6-14.6); RBC Distribution Width SD 45.2 fl (35.1-43.9); Red Blood Count 4.13 M/mm3 (4.2-5.4); White Blood Count 6.1 K/mm3 (4.4-11.0)
[2025-06-02 13:39] LABS: AST(SGOT) 38 U/L (<=31); Alanine Aminotransfer ALT/SGPT 28 U/L (<=34); Albumin, Serum 4.2 g/dL (3.4-4.8); Alkaline Phosphatase 60 U/L (35-104); Anion Gap 10 (5-15); BUN 26 mg/dL (4-19); BUN/Creat Ratio 22.0 RATIO (10-20); Calcium,Total 10.3 mg/dL (7.6-11.0); Carbon Dioxide 27.1 mmol/L (21.0-32.0); Chloride 106 mmol/L (98-108); Cholesterol 211 mg/dL (<=200); Globulin 2.8 g/dL (2.2-4.2); Glucose 102 mg/dL (70-99); Low Density Lipoprotein Calc. 106 mg/dL; Potassium 4.0 mmol/L (3.3-5.1); Triglycerides 46 mg/dL; Very Low Density Lipoprotein 9 mg/dL (5-40); Vitamin D,25 Hydroxy 47.9 ng/mL (30-100); cholesterol:hdl ratio screen 2.19
== END 2025-06-02 23:59 | disposition home or self-care (01) ==
LOC: MFPLAB 10:14
PROVIDERS: PCP Family Medicine; Visit Provider Family Medicine
DX: I10 Essential (primary) hypertension (principal); Z78.0 Asymptomatic menopausal state; E78.5 Hyperlipidemia, unspecified
CPT/HCPCS: 36415; 80053; 80061; 82306; 85027